=== PATIENT | female | born 1960 | race Caucasian/White ===

== ENCOUNTER 2020-03-13 18:04 | Outpatient (REF) | payer OTHER, SELFPAY | END 2020-03-13 18:05 | disposition home or self-care (01) | LOC: HO.LNP 18:04 | PROVIDERS: Visit Provider Internal Medicine | DX: Z01.419 Encounter for gynecological examination (general) (routine) without abnormal findings (principal); Z78.0 Asymptomatic menopausal state | CPT/HCPCS: 88142 ==

== ENCOUNTER 2022-03-25 09:05 | Outpatient (REF) | payer OTHER, SELFPAY ==
[2022-03-25 12:18] LABS: Alanine Aminotransferase 55 U/L (0-31); Anion Gap 16 (12-20); Aspartate Amino Transferase 40 U/L (5-31); Blood Urea Nitrogen 11 mg/dL (9-16); Calcium 9.3 mg/dL (8.4-10.2); Carbon Dioxide 23 mmol/L (22-29); Chloride 105 mmol/L (96-108); Cholesterol 218 mg/dL; Estimated Glomerular Filt Rate > 60; Glucose Fasting 108 mg/dL (60-99); HDL Cholesterol 48 mg/dL; LDL Cholesterol Calculated 124 mg/dl; Potassium 4.1 mmol/L (3.3-5.1); Sodium 140 mmol/L (135-145); Triglycerides 234 mg/dL
[2022-03-25 12:25] LABS: Vitamin D 25-OH Total 51.4 ng/mL (>30)
[2022-03-25 12:27] LABS: Estimated Average Glucose 114 mg/dL; Hemoglobin A1c % 5.6 %
== END 2022-03-25 09:06 | disposition home or self-care (01) ==
LOC: HO.HMGCLDS 09:05
PROVIDERS: PCP Internal Medicine; Visit Provider Internal Medicine
DX: Z00.00 Encounter for general adult medical examination without abnormal findings (principal); E78.2 Mixed hyperlipidemia; I10 Essential (primary) hypertension; R73.01 Impaired fasting glucose; Z78.0 Asymptomatic menopausal state
CPT/HCPCS: 36415; 80048; 80061; 82306; 83036; 84450; 84460

== ENCOUNTER 2023-07-25 09:27 | Outpatient (REF) | payer OTHER, SELFPAY ==
[2023-07-25 11:52] LABS: Estimated Average Glucose 111 mg/dL; Hemoglobin A1c % 5.5 % (<6.0)
[2023-07-25 12:27] LABS: Alanine Aminotransferase 37 U/L (0-31); Anion Gap 14 (12-20); Aspartate Amino Transferase 30 U/L (5-31); Blood Urea Nitrogen 12 mg/dL (9-16); Calcium 9.8 mg/dL (8.4-10.2); Carbon Dioxide 27 mmol/L (22-29); Chloride 106 mmol/L (96-108); Cholesterol 207 mg/dL (<200); Estimated Glomerular Filt Rate > 60; Glucose Fasting 113 mg/dL (60-99); HDL Cholesterol 54 mg/dL (>40); LDL Cholesterol Calculated 120 mg/dL (<100); Potassium 3.8 mmol/L (3.3-5.1); Sodium 143 mmol/L (135-145); Triglycerides 167 mg/dL (<150); Vitamin D 25-OH Total 55.4 ng/mL (>30)
== END 2023-07-25 09:28 | disposition home or self-care (01) ==
LOC: HO.HMGCLDS 09:27
PROVIDERS: PCP Internal Medicine; Visit Provider Internal Medicine
DX: Z00.01 Encounter for general adult medical examination with abnormal findings (principal); R73.01 Impaired fasting glucose; E78.2 Mixed hyperlipidemia; F41.9 Anxiety disorder, unspecified; I10 Essential (primary) hypertension
CPT/HCPCS: 36415; 80048; 80061; 82306; 83036; 84450; 84460

== ENCOUNTER 2023-09-26 08:23 | Outpatient (AMB) | payer OTHER, SELFPAY ==
[2023-09-26 08:35] VITALS: BP 126/80; PULSE 110; TEMP 36.8; O2SAT 98; BMI 32.3
--- NOTE | 2023-09-26 08:35 | AM.OFFWIN_ITS ---
Intake Vital Signs 09/26/23 08:35 Height 5 ft 2 in Weight 176 lb 8 oz BMI 32.3 BP 126/80 Blood Pressure Location Lt brachial Position Sitting Pulse 110 H Pulse Source Pulse Oximeter Temp 98.3 F Temp Source Temporal Artery Scan Pulse Oximetry (%) 98 Oxygen Delivery Method Room Air Intake Visit Reasons: EP sore throat (lobby) Intake Note: Pt presents to the office today for c/o a sore throat that started friday. Patient Tobacco Use Status: Never used Tobacco Allergies No Known Allergies Allergy (Verified 09/26/23 08:38) HPI HPI Comments History of Present Illness Details This is a 63-year-old female with a past medical history of seasonal allergies and hypertension presenting for evaluation of a sore throat and left ear discomfort she has had since Friday. Patient states that she has been taking Belle for management of her seasonal allergies. She denies having any fevers, chills, nausea, vomiting, cough, chest pain or shortness a breath. Patient has been taking Aleve for relief of her symptoms. [facility] Medical History Herpes zoster vaccination declined Refused influenza vaccine COVID-19 vaccination declined Colon cancer screening declined Impaired fasting glucose Mixed dyslipidemia Mixed dyslipidemia Anxiety disorder Essential hypertension Surgical History Hx of cholecystectomy Family History Father Diabetes mellitus Hx of CABG COPD (chronic obstructive pulmonary disease) Leukemia CRF (chronic renal failure) CVD (cardiovascular disease) Cancer Mother HTN (hypertension) Rheumatoid arthritis Sister No problems noted. Son No problems noted. Daughter No problems noted. Brother Cancer Social History Housing: House Alcohol intake: never Patient Tobacco Use Status: Never used Tobacco e-Cigarette/Vaping Use: Never Used service: No Current occupational status: employed Cognitive needs: No Hearing needs: No Vision needs: Yes Review of Systems Const All systems reviewed & are unremarkable except as noted in HPI and below Denies chills, Denies fever(s) and Denies headache(s) Eyes Reports no additional complaints ENT Reports otalgia (left ear), Denies facial pain, Denies headache(s), Denies sinus pressure and Reports sore throat Card Reports no additional complaints Resp Reports no additional complaints GI Reports no additional complaints Skin/Breast Reports system reviewed and no additional complaints, except as documented Neuro Denies headache(s) Physical Exam Vital Signs: Last Vital Signs Temp 98.3 F 09/26/23 08:35 Pulse 110 H 09/26/23 08:35 BP 126/80 09/26/23 08:35 Pulse Ox 98 09/26/23 08:35 Oxygen Delivery Method Room Air 09/26/23 08:35 BMI result Body Mass Index 32.3 repeat pulse 88 bpm on examination Const General: cooperative, healthy appearing, comfortable, no acute distress, well developed, alert, awake and Physically active; No lethargic Nutritional Appearance: overweight Orientation/consciousness: patient oriented x3 and No lethargic Limitations: no limitations HEENT Head: Yes normal to inspection Ears: hearing grossly normal bilaterally, external ears normal, right TM abnormal (cerumen impaction), TM normal on the left, EAC's normal and unable to visualize TM on the right General nose exam: Normal external nose present Face and sinus: Yes normal facial exam and Yes sinuses nontender Mouth: oropharynx normal and moist mucous membranes Throat: Yes postnasal drainage Eyes General: appearance normal, both eyes and all related structures Visual Koch: normal visual koch by confrontation Alignment and Position: alignment normal Periorbital: periorbital findings normal Eyelids: Yes eyelids normal Conjunctivae: conjunctivae normal Sclerae: sclerae normal and scleral abnormal EOM: EOMs intact bilaterally Neck Lymphatic: no lymphadenopathy noted Resp Effort & Inspection: normal respiratory effort Auscultation: clear to auscultation bilaterally Cardio Rate: regular rate Rhythm: regular rhythm Skin General skin exam: no rashes or lesions noted Neuro General: patient oriented x3 Psych Appearance: grossly normal Mental Status: mental status grossly normal Insight: Good insight present (Psych) Judgement: Good judgement present (Psych) Results AMB Rapid Strep AMB Rapid Strep Negative Last Edit by Corinna Herring CMA on 09/26/23 08:43 Results Reviewed Results Reviewed: rapid strep test is negative Assessment & Plan Assessment & Plan (1) Acute pharyngitis: Comment: Rapid strep test is negative. Code(s): J02.9 - Acute pharyngitis, unspecified Qualifiers: Pharyngitis/tonsillitis etiology: unspecified etiology Qualified Code(s): J02.9 - Acute pharyngitis, unspecified Plan: Ibuprofen OTC as needed for discomfort, stay very well hydrated with fluids, work note is provided through Friday. (2) Otalgia of left ear: Comment: No evidence of otitis media or otitis externa. Code(s): H92.02 - Otalgia, left ear Plan: Patients history coupled with her examination is most consistent with an upper respiratory infection. Patient will be discharged home with anticipatory guidance. Orders: Orders AMB Rapid Strep Screen Today Z13.9 - Encounter for screening, unspecified Coding Level of Care Code Est Pt Level 3 (68281) Diagnoses Acute pharyngitis, unspecified etiology J02.9 Pharyngitis/tonsillitis etiology: unspecified etiology Otalgia of left ear H92.02 Time Spent (min) 20
== END 2023-09-26 08:52 | disposition home or self-care (01) ==
PROVIDERS: PCP Internal Medicine; Visit Provider Physician Assistant
DX: J02.9 Acute pharyngitis, unspecified (principal); H92.02 Otalgia, left ear
CPT/HCPCS: 87880; 99213

== ENCOUNTER 2024-08-19 15:40 | Outpatient (AMB) | payer OTHER, SELFPAY ==
[2024-08-19 15:44] VITALS: BP 128/84; PULSE 99; O2SAT 97; BMI 32.4
--- NOTE | 2024-08-19 15:44 | MHC.PC.OV ---
Vital Signs 08/19/24 15:44 Height 5 ft 2 in Weight 177 lb 2 oz BMI 32.4 BP 128/84 Blood Pressure Location Lt brachial Position Sitting Pulse 99 Pulse Source Pulse Oximeter Pulse Oximetry (%) 97 Oxygen Delivery Method Room Air Intake Visit Reasons: PE Intake Note: Pt is here today for her annual physical. Last appt Allergies No Known Allergies Allergy (Verified 08/19/24 15:59) Medication List - Last Reconciled 08/19/24 by Alice Stauffer MD amlodipine 2.5 mg PO DAILY coenzyme [id number] 100-100 mg-unit caps PO famotidine (Pepcid) 20 mg PO DAILY fexofenadine (Belle Allergy) 180 mg PO DAILY lisinopril 20 mg PO DAILY omega-3 fatty acids 1,000 mg PO DAILY vitamin D3-vitamin K2 (MK4) 1,000-100 unit-mcg 1 tab PO DAILY Tobacco use date assessed: 08/19/24 Dental Screening Dental Screen Date: 08/19/24 Did you have a dental visit in the last 12 months?: Yes Did you have a dental problem in the last 6 months where you did not have access to dental care?: No Was dental information given to patient?: Patient has dentist HPI PE HPI Details 62-year-old lady here today for her physical exam. She is overdue for her breast cancer ,cervical cancer , and colon cancer screening . Last Pap smear was done in 2019 with negative findings. She has hypertension currently on amlodipine 2.5 mg daily and lisinopril 20 mg daily with blood pressure stable and well controlled on present treatment. He takes an occasional Pepcid every now and then for heartburn symptoms and takes fexofenadine as well for episodes of nasal congestion and runny nose. He also has declined all vaccines offered [facility] Medical History Herpes zoster vaccination declined Refused influenza vaccine COVID-19 vaccination declined Colon cancer screening declined Impaired fasting glucose Mixed dyslipidemia Anxiety disorder Essential hypertension Surgical History Hx of cholecystectomy Family History Father Diabetes mellitus Hx of CABG COPD (chronic obstructive pulmonary disease) Leukemia CRF (chronic renal failure) CVD (cardiovascular disease) Cancer Mother HTN (hypertension) Rheumatoid arthritis Sister No problems noted. Son No problems noted. Daughter No problems noted. Brother Cancer Social History Housing: House Alcohol intake: never Patient Tobacco Use Status: Never used Tobacco e-Cigarette/Vaping Use: Never Used service: No Current occupational status: employed Cognitive needs: No Hearing needs: No Vision needs: Yes Questionnaire PHQ-9 Over the last 2 weeks, how often have you been bothered by any of the following problems? 1. Little interest or pleasure in doing things: not at all 2. Feeling down, depressed, or hopeless: not at all 3. Trouble falling or staying asleep, or sleeping too much: not at all 4. Feeling tired or having little energy: not at all 5. Poor appetite or overeating: not at all 6. Feeling bad about yourself - or that you are a failure or have let yourself or your family down: not at all 7. Trouble concentrating on things, such as reading the newspaper or watching television: not at all 8. Moving or speaking so slowly that other people could have noticed. Or the opposite - being so fidgety or restless that you have been moving around a lot more than usual: not at all 9. Thoughts that you would be better off or of hurting yourself in some way: not at all Total score: 0 Depression Screening Interpretation: Negative Depression Screening Done: Yes 58629 - PHQ-9 Billing: Yes Source: Developed by Drs. Isaías Cope, Radha Khoury, Zhang Howe and colleagues, with an educational carlie from [employer]. Thrive Questionnaire Date Thrive assessed: 08/19/24 I am a: Patient What is your living situation today?: I have a steady place to live Within the past 12 months, did the food you bought not last and you didn't have the money to get more?: I choose not to answer this question Within the past 12 months, did you worry whether your food would run out before you got money to buy more?: I choose not to answer this question Do you have trouble paying for medicines?: No Do you have trouble getting transportation to medical appointments?: No Do you have trouble paying your heating and electricity bill?: No Do you have trouble taking care of your child, family member or friend?: No Do you have trouble with day-to-day activities such as bathing, preparing meals, shopping, managing finances, etc.?: No Are you currently unemployed and looking for a job?: No Are you interested in more education?: No Please select the resources that you would like help with: None Currently or been in a relationship where the following occur: No concerns reported THRIVE Score: 0 AUDIT C Alcohol Use Questionnaire (AUDIT-C) 1. How often do you have a drink containing alcohol?: Never 3. How often do you have six or more drinks on one occasion?: Never Total Score: 0 Score Reviewed/Action Taken: Yes SUMMER-7 AMB Questionnaire SUMMER-7 Date SUMMER - 7 assessed: 08/19/24 Feeling nervous, anxious, or on edge: 0 = Not at all Not being able to stop or control worryin = Not at all Worrying too much about different things: 0 = Not at all Trouble relaxin = Not at all Being so restless that it is hard to sit still: 0 = Not at all Becoming easily annoyed or irritable: 0 = Not at all Feeling afraid as if something awful might happen: 0 = Not at all Total SUMMER-7 score (0-4 normal; 5-9 mild; 10-14 moderate; 15-21 severe): 0 Source: Developed by Drs. Isaías Cope, Radha Khoury, Zhang Howe and colleagues, with an educational carlie from [employer]. SUMMER-7 Assessment Billing SUMMER-7 Assessment Tool: SUMMER-7 Assessment 30365 Review of Systems Const Denies chills, Denies difficulty sleeping, Denies fever(s) and Denies headache(s) Eyes Reports no additional complaints ENT Reports otalgia (left ear), Denies facial pain, Denies headache(s), Denies sinus pressure and Reports sore throat Card Reports no additional complaints Resp Reports no additional complaints GI Reports no additional complaints Reports no additional complaints Musc Reports no additional complaints Skin/Breast Reports system reviewed and no additional complaints, except as documented Neuro Denies headache(s) Psych Reports no additional complaints Endo Reports no additional complaints [place]/Lymph Reports no additional complaints Aller/Immun Reports no additional complaints Physical exam (Primary Care) Vital Signs: Last Vital Signs Pulse 99 08/19/24 15:44 BP 128/84 08/19/24 15:44 Pulse Ox 97 08/19/24 15:44 Oxygen Delivery Method Room Air 08/19/24 15:44 BMI result Body Mass Index 32.4 Tobacco/Smoking Status: Tobacco use Status Tobacco use date assessed 08/19/24 08/19/24 15:47 Patient Tobacco Use Status Never used Tobacco 08/19/24 15:47 e-Cigarette/Vaping Use Never Used 08/19/24 15:47 PHQ-9: PHQ-9 Score PHQ-9: Total score 0 08/19/24 16:02 Depression Screening Interpretation: Negative Thrive Assessment: Date of Thrive Assessment Date Thrive assessed 08/19/24 08/19/24 15:57 Currently or been in a relationship where the following occur: No concerns reported Const General: comfortable Nutritional Appearance: obese Orientation/consciousness: patient oriented x3 HENMT Head: Yes normocephalic Ears: hearing grossly normal bilaterally, TM's normal bilaterally and EAC's normal General nose exam: Normal external nose present Face and sinus: Yes normal facial exam Mouth: Normal oral and palatal mucosa present Eyes General: appearance normal, both eyes and all related structures Neck Neck: Yes full ROM and Yes no lymphadenopathy Thyroid: Thyroid normal Chest Chest palpation & inspection: normal inspection of the chest Breast/axilla inspection: normal inspection of the breasts Breast/axilla palpation: normal palpation of the breasts Resp Effort & Inspection: normal respiratory effort and able to speak in complete sentences Auscultation: clear to auscultation bilaterally Cardio Jugular venous distension: no JVD Palpation: normal PMI Rate: regular rate Rhythm: regular rhythm Heart sounds: S1 normal heart sound present and S2 normal heart sound present GI Inspection: Yes normal to inspection Palpation (GI): Soft to palpation, nontender, no guarding and no masses Auscultation: normal bowel sounds Back/Spine/Pelvis Back: No back tenderness Skin General skin exam: no rashes or lesions noted Neuro General: patient oriented x3, gait normal, tone normal, moves all extremities, Normal light touch and pain sensation, no focal motor deficits and CN's II-XI intact bilaterally Cognition (Neuro): normal cognition Gait exam (Neuro): Normal gait present Extrem General: Yes full ROM, Yes no joint enlargement, Yes no pedal edema, Yes no calf tenderness and Yes normal gait Psych Appearance: grossly normal Mental Status: mental status grossly normal Speech and movement: Normal speech and movement present Affect: normal affect Attitude: cooperative Thought process: Normal thought process present Thought content: Normal thought content present Coding Level of Care Code Est Pt Prev Care 40-64y(20860) Diagnoses Annual visit for general adult medical examination with abnormal findings Z00.01 Impaired fasting glucose R73.01 Mixed dyslipidemia E78.2 Essential hypertension I10 Encounter for screening for osteoporosis Z13.820 Additional Codes SUMMER-7 Assessment Billing - SUMMER-7 Assessment Tool: SUMMER-7 Assessment 31182 ([id number]) PHQ-9 - 88235 - PHQ-9 Billing: Yes ([id number]) Assessment & Plan Assessment & Plan (1) Annual visit for general adult medical examination with abnormal findings: Code(s): Z00.01 - Encounter for general adult medical examination with abnormal findings Plan: Will check appropriate labs. Recommended dental visit every 6 months and regular eye exams, at least every 2 years. Take adequate calcium in diet and vitamin-D 3 at 2000 IU per cap once a day, in addition to weight-bearing exercises to help maintain good muscle tone and weight control. Instructed to do self-breast exam, and recommended to get yearly mammogram, and bone density scan at least every 2 years patient does not want to get any vaccines. Cologuard test ordered for colon cancer screening (2) Impaired fasting glucose: Code(s): R73.01 - Impaired fasting glucose Category: Medical Plan: Ordered basic metabolic panel. Your previous fasting blood sugars were elevated above 100 mg/dL. Impaired glucose metabolism increases the risk for developing diabetes mellitus type 2, as well as heart attack and stroke later on. Lifestyle changes that promotes weight loss, healthy eating habits, and regular exercise are important, and can prevent the progression to diabetes (3) Mixed dyslipidemia: Code(s): E78.2 - Mixed hyperlipidemia Category: Medical Plan: Ordered a liver enzymes and fasting lipid panel. Reinforced importance of following a healthy diet and getting regular exercise (4) Essential hypertension: Comment: Code(s): I10 - Essential (primary) hypertension Category: Medical Plan: Blood pressure at goal of less than 130/80. Continue amlodipine V mg daily and lisinopril 20 mg daily. Reinforced importance of following a low sodium diet, getting regular exercise, and lowering stress levels. (5) Encounter for screening for osteoporosis: Code(s): Z13.820 - Encounter for screening for osteoporosis Plan: Bone density scan ordered. Advise patient is start taking [id number] vitamin-D 3 at least 2000 units daily and take adequate calcium from dietary sources in addition to doing regular weight-bearing exercise to prevent osteoporosis Orders: Orders MM tomosynthesis screening BI 08/19/24 Z12.31 - Encounter for screening mammogram for malignant neoplasm of breast, Z13.820 - Encounter for screening for osteoporosis, Z78.0 - Asymptomatic menopausal state XR DEXA axial skeleton 08/19/24 Z12.31 - Encounter for screening mammogram for malignant neoplasm of breast, Z13.820 - Encounter for screening for osteoporosis, Z78.0 - Asymptomatic menopausal state Vitamin D 25-OH Total 08/19/24 E78.2 - Mixed hyperlipidemia, I10 - Essential (primary) hypertension, R73.01 - Impaired fasting glucose Alanine Aminotransferase 08/19/24 E78.2 - Mixed hyperlipidemia, I10 - Essential (primary) hypertension, R73.01 - Impaired fasting glucose Aspartate Amino Transferase 08/19/24 E78.2 - Mixed hyperlipidemia, I10 - Essential (primary) hypertension, R73.01 - Impaired fasting glucose Basic Metabolic Panel Fasting 08/19/24 E78.2 - Mixed hyperlipidemia, I10 - Essential (primary) hypertension, R73.01 - Impaired fasting glucose Lipid Panel 08/19/24 E78.2 - Mixed hyperlipidemia, I10 - Essential (primary) hypertension, R73.01 - Impaired fasting glucose Referrals Cologuard Test Z12.11 - Encounter for screening for malignant neoplasm of colon, Z12.12 - Encounter for screening for malignant neoplasm of rectum Medications: Refilled amlodipine 2.5 mg PO DAILY 90 tabs 4RF I10 - Essential (primary) hypertension lisinopril 20 mg PO DAILY 90 tabs 4RF
== END 2024-08-19 16:37 | disposition home or self-care (01) ==
LOC: HO.HMCC 15:40
PROVIDERS: PCP Internal Medicine; Visit Provider Internal Medicine
DX: Z00.01 Encounter for general adult medical examination with abnormal findings (principal); R73.01 Impaired fasting glucose; E78.2 Mixed hyperlipidemia; I10 Essential (primary) hypertension; Z13.820 Encounter for screening for osteoporosis

== ENCOUNTER → 2024-08-19 15:40 | Outpatient (BNVA) | payer OTHER, SELFPAY | PROVIDERS: PCP Internal Medicine; Visit Provider Internal Medicine | DX: Z00.01 Encounter for general adult medical examination with abnormal findings (principal); R73.01 Impaired fasting glucose; E78.2 Mixed hyperlipidemia; I10 Essential (primary) hypertension | CPT/HCPCS: 96127; 99396 ==

== ENCOUNTER 2025-01-19 08:15 | Outpatient (REF) | payer OTHER, SELFPAY ==
[2025-01-19 11:09] LABS: Alanine Aminotransferase 56 U/L (0-31); Anion Gap 14 (12-20); Aspartate Amino Transferase 51 U/L (5-31); Blood Urea Nitrogen 14 mg/dL (9-16); Calcium 10.2 mg/dL (8.4-10.2); Carbon Dioxide 26 mmol/L (22-29); Chloride 105 mmol/L (96-108); Cholesterol 207 mg/dL (<200); Estimated Glomerular Filt Rate > 60; HDL Cholesterol 49 mg/dL (>40); Potassium 4.3 mmol/L (3.3-5.1); Sodium 141 mmol/L (135-145); Triglycerides 163 mg/dL (<150)
== END 2025-01-19 08:16 | disposition home or self-care (01) ==
LOC: HO.HMGCLDS 08:15
PROVIDERS: PCP Internal Medicine; Visit Provider Internal Medicine
DX: E78.2 Mixed hyperlipidemia (principal); I10 Essential (primary) hypertension; R73.01 Impaired fasting glucose
CPT/HCPCS: 36415; 80048; 80061; 82306; 84450; 84460